=== PATIENT | male | born 2000 ===

== ENCOUNTER → 2022-06-08 11:04 | Outpatient (CLI) | payer OTHER, SELFPAY ==
--- NOTE | ~2022-06-08 | XR_ITS ---
XR fl inj shoulder RT - MR/CT DATE: 06/08/2022 11:55 INDICATION: Right shoulder pain. Pre-procedural joint injection for MRI examination. TECHNIQUE: The purpose of the procedure, technique and potential complications were discussed with th e patient. The patient verbalized understanding and gave consent. The skin of the anterior aspect of the right shoulder was prepared with sterile Betadine and sterile drape was applied. Local anesthetic was administered to the skin and underlying soft tissues. A 22 gauge spinal needle was introduced into the glenohumeral joint using fluoroscopic guidance. 12 cc mixed Multihance, Omnipaque 350 and local anesthetic was injected into the glenohumeral joint w ith fluoroscopic confirmation of intraarticular placement of the contrast agents. The needle was then withdrawn. IMPRESSION: Pre-MRI fluoroscopically guided glenohumeral joint injection of 12 cc mixed contrast and local anesthetic, including Multihance Reviewed, dictated and finalized at [facility]. Reviewed, dictated and finalized at [facility].
--- NOTE | ~2022-06-08 | MR_ITS ---
EXAMINATION: MR shoulder RT w con DATE: 06/08/2022 12:24 INDICATION: Right shoulder pain, unspecified chronicity. TECHNIQUE: Magnetic resonance imaging (MRI) of the right shoulder was performed without intravenous c ontrast after intra-articular injection of contrast (MR arthrogram). COMPARISON: None. FINDINGS: Coracoacromial arch: The acromion undersurface is flat in morphology (type I). The acromioclavicular joint is normal. Ther e is mild subacromial/subdeltoid bursitis. Rotator cuff: There is mild supraspinatus and infraspinatus tendinopathy. Teres minor tendon is normal. Subscapular is tendon is normal. No tear. There is no asymmetric fatty atrophy of the rotator cuff muscle bellies . Biceps tendon and glenoid labrum: Biceps tendon is in bicipital groove. Intra-articular biceps tendon is normal. The superior labrum is normal. The anteroinferior labrum is normal. An injection site is noted involving the anterior labru m from 2:00 to 4:00. Fluid: The glenohumeral joint is well distended by contrast. There is no contrast in subacromial/subdeltoid bursa. Bones/cartilage: The humeral head cartilage is normal. An injection site is noted involving the anterior glenoid. IMPRESSION: 1. Mild rotator cuff tendinopathy. No tear. 2. Normal superior labrum. Normal anteroinferior labrum. 3. Mild subacromial/subdeltoid bursitis. Reviewed, dictated and finalized at location [facility].
== END ==
PROVIDERS: Visit Provider Orthopaedic Surgery
DX: M25.511 Pain in right shoulder (principal)
CPT/HCPCS: 23350; 73221; 73222; 77002; A9577; Q9967